=== PATIENT | female | born 1945 | race African-American/Black ===

== ENCOUNTER 2017-07-03 07:09 | Inpatient (IN) | payer MEDICARE, MEDICAID ==
[~2017-07-03] VITALS: Ht 152.4 cm; Wt 59.9 kg
[~2017-07-03 07:09] MED LIST: AMLO5TAB4 PO; ASPI-1159 PO; CHOL100046 PO; FOLI-43 PO; HYDR-4005 PO; LOSA100T14 PO; METF10002 PO; METO50TA5 PO; PANT40TA4 PO; RIVA20TA PO; ROSU10TA PO
[2017-07-03] MEDS ORDERED: SODIUM CHLORIDE 0.9% 1,000 ML IV ONE (07:29)
[2017-07-03] MEDS ORDERED: LORAZEPAM 2MG/ML CPJ IV ONE (07:30)
[2017-07-03 08:07] LABS: CHLORIDE 105 mEq/L (98-107)
[2017-07-03 08:09] LABS: INR 1.2; PROTHROMBIN TIME 12.1 sec (9.4-11.6)
[2017-07-03 08:10] LABS: BASOPHILS % 0.6 % (0.0-2.0); EOSINOPHILS % 1.4 % (0.0-5.0); HEMATOCRIT. 37.6 % (36.0-48.0); HEMOGLOBIN. 12.3 g/dL (12.0-16.0); LYMPHOCYTES % 58.2 % (20.0-50.0); MEAN CORPUSCULAR HEMOGLOBIN 30.1 pg (28.0-32.0); MEAN CORPUSCULAR VOLUME 91.9 fL (81.0-99.0); MEAN PLATELET VOLUME 8.7 fl (7.4-10.4); MONOCYTES % 10.5 % (2.0-8.0); NEUTROPHILS % 29.3 % (40.0-76.0); PLATELET 220 x1000/uL (130-400); RED CELL DISTRIBUTION WIDTH 14.4 % (11.6-14.6)
[2017-07-03 08:11] LABS: AMMONIA 29 uMol/L (<32)
[2017-07-03 08:22] LABS: CARBON DIOXIDE 30 mEq/L (21-32)
[2017-07-03] MEDS ORDERED: LEVETIRACETAM 500MG PREMIX 100 ML IV ONE (10:30)
[2017-07-03 11:34] LABS: CLARITY URINE CLEAR (CLEAR); COLOR URINE YELLOW (YELLOW); GLUCOSE URINE NEGATIVE (NEGATIVE); KETONES URINE NEGATIVE (NEGATIVE); LEUKOCYTE ESTERASE URINE 2+ (NEGATIVE); NITRITE URINE NEGATIVE (NEGATIVE); OCCULT BLOOD URINE TRACE (NEGATIVE); PROTEIN URINE NEGATIVE (NEGATIVE); SPECIFIC GRAVITY URINE 1.007 (1.005-1.030); UROBILINOGEN URINE 0.2 E.U./dL (0.2-1.0)
[2017-07-03] MEDS ORDERED: ASPIRIN 81MG TABLET PO ONE (11:45)
[2017-07-03] MEDS ORDERED: NA PHOS,M-B/NA PHOS,DI-BA ENEMA 118ML PR PRN (12:00)
[2017-07-03] MEDS ORDERED: ACETAMINOPHEN 325MG TABLET PO PRN (12:00)
[2017-07-03] MEDS ORDERED: NITROGLYCERIN 0.4MG TABLET SL SL PRN (12:00)
[2017-07-03] MEDS ORDERED: DIPHENHYDRAMINE 50MG/ML VIAL IV PRN (12:00)
[2017-07-03] MEDS ORDERED: LORAZEPAM 2MG/ML CPJ IV PRN (12:00)
[2017-07-03] MEDS ORDERED: MAGNESIUM/ALUMINUM HYDROXIDE/SIMETHICONE 30ML UDC PO PRN (12:00)
[2017-07-03] MEDS ORDERED: IPRATROPIUM/ALBUTEROL 0.5-3(2.5)MG/3ML NEB INH PRN (12:00)
[2017-07-03] MEDS ORDERED: DOCUSATE SODIUM 100MG CAPSULE PO PRN (12:00)
[2017-07-03] MEDS ORDERED: CLONIDINE 0.1MG TABLET PO PRN (12:00)
[2017-07-03] MEDS ORDERED: GUAIFENESIN 200MG/10ML SUGAR FREE UDC PO PRN (12:00)
[2017-07-03] MEDS ORDERED: ONDANSETRON HCL 4MG/2ML VIAL IV PRN (12:00)
[2017-07-03 14:36] LABS: CREATINE KINASE MB FRACTION 31.7 ng/mL (0.5-3.6)
[2017-07-03 14:39] LABS: TROPONIN I 4.7 ng/mL (0.00-0.04)
[2017-07-03] MEDS ORDERED: ZOLPIDEM TARTRATE 5MG TABLET PO PRN (20:30)
[2017-07-03 23:15] VITALS: BP 141/75
[2017-07-03] MEDS: LEVETIRACETAM 500MG TABLET PO SCH (23:35)
[2017-07-03] MEDS: METOPROLOL TARTRATE 25MG TABLET PO SCH (23:35)
[2017-07-03] MEDS: NITROGLYCERIN OINT 1GM/INCH UDPKT TD SCH (23:35)
[2017-07-03] MEDS: FAMOTIDINE 20MG/2ML VIAL IV SCH (23:35)
[2017-07-03] MEDS: ENOXAPARIN 60MG/0.6ML SYR SUBCUT SCH (23:36)
[2017-07-04] VITALS: BP 132/71
[2017-07-04] MEDS ORDERED: MAGN400T26 PO (01:24)
[2017-07-04 01:33] LABS: *AMPHETAMINES SCREEN URINE NEGATIVE (NEGATIVE); *BARBITURATES SCREEN URINE NEGATIVE (NEGATIVE); *BENZODIAZEPINES SCREEN URINE NEGATIVE (NEGATIVE); *COCAINE SCREEN URINE NEGATIVE (NEGATIVE); CANNABINOID URINE SCREEN PRESUMTIVE POSITIVE (NEGATIVE); METHADONE URINE SCREEN NEGATIVE (NEGATIVE); OPIATES URINE SCREEN NEGATIVE (NEGATIVE); PHENCYCLIDINE URINE SCREEN NEGATIVE (NEGATIVE)
[2017-07-04 04:00] VITALS: BP 112/71
[2017-07-04] MEDS: NITROGLYCERIN OINT 1GM/INCH UDPKT TD SCH ×4 (05:36→23:51)
[2017-07-04 05:50] LABS: BASOPHILS % 0.6 % (0.0-2.0); EOSINOPHILS % 2.1 % (0.0-5.0); HEMOGLOBIN. 11.8 g/dL (12.0-16.0); LYMPHOCYTES % 45.9 % (20.0-50.0); MEAN CORPUSCULAR HEMOGLOBIN 30.1 pg (28.0-32.0); MEAN CORPUSCULAR VOLUME 91.7 fL (81.0-99.0); MEAN PLATELET VOLUME 8.9 fl (7.4-10.4); MONOCYTES % 14.5 % (2.0-8.0); NEUTROPHILS % 36.9 % (40.0-76.0); PLATELET 234 x1000/uL (130-400); RED BLOOD CELL COUNT 3.93 mill/uL (4.2-5.4); RED CELL DISTRIBUTION WIDTH 14.3 % (11.6-14.6)
[2017-07-04 06:50] LABS: CHLORIDE 107 mEq/L (98-107)
[2017-07-04 07:09] LABS: CARBON DIOXIDE 25 mEq/L (21-32); CREATINE KINASE 210 IU/L (26-192); CREATINE KINASE MB FRACTION 21.7 ng/mL (0.5-3.6); HDL CHOLESTEROL 65 mg/dL (40-59); LDL CHOLESTEROL 73 mg/dL (5-100)
[2017-07-04 08:00] VITALS: BP 125/75
[2017-07-04] MEDS: LEVETIRACETAM 500MG TABLET PO SCH ×2 (08:45→21:48)
[2017-07-04] MEDS: ASPIRIN 325MG EC TABLET PO SCH (08:45)
[2017-07-04] MEDS: FAMOTIDINE 20MG/2ML VIAL IV SCH ×2 (08:46→21:48)
[2017-07-04] MEDS: ENOXAPARIN 60MG/0.6ML SYR SUBCUT SCH ×2 (08:46→21:49)
[2017-07-04] MEDS: METOPROLOL TARTRATE 25MG TABLET PO SCH ×2 (08:46→21:48)
[2017-07-04] MEDS ORDERED: DEXTROSE 50% WATER 50ML SYRINGE IV PRN (10:15)
[2017-07-04 12:00] VITALS: BP 118/70
[2017-07-04] MEDS: BLOOD SUGAR DIAGNOSTIC STRIP TEST SCH ×3 (12:40→21:49)
[2017-07-04] MEDS: INSULIN LISPRO 100 UNITS/ML SUBCUT SCH ×3 (13:10→21:00)
[2017-07-04 16:00] VITALS: BP 113/55
[2017-07-04] MEDS ORDERED: MAGNESIUM 2 G PREMIX 50 ML IV NR (16:00)
[2017-07-04] MEDS: LOSARTAN POTASSIUM 25 MG TABLET PO SCH (18:16)
[2017-07-04 20:24] VITALS: BP 135/78
[2017-07-05 00:02] VITALS: BP 123/64
[2017-07-05 04:00] VITALS: BP 123/71
[2017-07-05] MEDS: NITROGLYCERIN OINT 1GM/INCH UDPKT TD SCH ×3 (05:38→18:53)
[2017-07-05] MEDS: BLOOD SUGAR DIAGNOSTIC STRIP TEST SCH ×4 (05:38→21:55)
[2017-07-05 06:53] LABS: HEMATOCRIT. 35.7 % (36.0-48.0); MEAN CORPUSCULAR HEMOGLOBIN 30.5 pg (28.0-32.0); MEAN CORPUSCULAR VOLUME 90.8 fL (81.0-99.0); PLATELET 226 x1000/uL (130-400); RED BLOOD CELL COUNT 3.93 mill/uL (4.2-5.4); RED CELL DISTRIBUTION WIDTH 14.1 % (11.6-14.6)
[2017-07-05 07:25] LABS: CARBON DIOXIDE 25 mEq/L (21-32); CHLORIDE 105 mEq/L (98-107); CREATINE KINASE 148 IU/L (26-192)
[2017-07-05 07:35] VITALS: BP 156/78
[2017-07-05 07:42] LABS: CREATINE KINASE MB FRACTION 6.4 ng/mL (0.5-3.6)
[2017-07-05] MEDS: INSULIN LISPRO 100 UNITS/ML SUBCUT SCH ×4 (08:10→21:00)
[2017-07-05] MEDS: FAMOTIDINE 20MG/2ML VIAL IV SCH ×2 (09:03→22:00)
[2017-07-05] MEDS: LEVETIRACETAM 500MG TABLET PO SCH ×2 (09:04→21:54)
[2017-07-05] MEDS: ASPIRIN 325MG EC TABLET PO SCH (09:04)
[2017-07-05] MEDS: METOPROLOL TARTRATE 25MG TABLET PO SCH ×2 (09:04→21:54)
[2017-07-05] MEDS: LOSARTAN POTASSIUM 25 MG TABLET PO SCH (09:05)
[2017-07-05] MEDS: ENOXAPARIN 60MG/0.6ML SYR SUBCUT SCH ×2 (09:06→21:59)
[2017-07-05 11:27] VITALS: BP 136/70
[2017-07-05 13:26] LABS: PLATELET ESTIMATE NORMAL
[2017-07-05] MEDS ORDERED: GADOBENATE DIMEGLUMINE 529 MG/ML 10ML IV ONE (14:40)
[2017-07-05 15:27] VITALS: BP 110/62
[2017-07-05 20:00] VITALS: BP 125/75
[2017-07-05] MEDS: ATORVASTATIN CALCIUM 10MG TABLET PO SCH (21:54)
[2017-07-06] VITALS (14 sets, daily range): BP systolic 93–173; BP diastolic 48–100
[2017-07-06] MEDS: NITROGLYCERIN OINT 1GM/INCH UDPKT TD SCH ×5 (06:00→23:00)
[2017-07-06 06:05] LABS: HEMATOCRIT. 34.9 % (36.0-48.0); HEMOGLOBIN. 11.6 g/dL (12.0-16.0); MEAN CORPUSCULAR HEMOGLOBIN 30.1 pg (28.0-32.0); MEAN CORPUSCULAR VOLUME 90.9 fL (81.0-99.0); MEAN PLATELET VOLUME 9.2 fl (7.4-10.4); PLATELET 222 x1000/uL (130-400); RED BLOOD CELL COUNT 3.84 mill/uL (4.2-5.4); RED CELL DISTRIBUTION WIDTH 14.4 % (11.6-14.6)
[2017-07-06 06:42] LABS: CARBON DIOXIDE 27 mEq/L (21-32); CHLORIDE 107 mEq/L (98-107)
[2017-07-06] MEDS: INSULIN LISPRO 100 UNITS/ML SUBCUT SCH ×4 (08:10→20:55)
[2017-07-06] MEDS: BLOOD SUGAR DIAGNOSTIC STRIP TEST SCH ×4 (08:14→20:55)
[2017-07-06] MEDS: LOSARTAN POTASSIUM 25 MG TABLET PO SCH (08:39)
[2017-07-06] MEDS: ASPIRIN 325MG EC TABLET PO SCH (08:39)
[2017-07-06] MEDS: LEVETIRACETAM 500MG TABLET PO SCH ×2 (08:39→21:13)
[2017-07-06] MEDS: METOPROLOL TARTRATE 25MG TABLET PO SCH ×2 (08:41→21:13)
[2017-07-06] MEDS: FAMOTIDINE 20MG/2ML VIAL IV SCH ×2 (08:41→21:13)
[2017-07-06 09:26] LABS: PLATELET ESTIMATE NORMAL
[2017-07-06] MEDS ORDERED: IOHEXOL-300 100 ML BOTTLE ONE (13:03)
[2017-07-06] MEDS ORDERED: LIDOCAINE HCL 1% 20ML VIAL (Pyxis) INJ ONE (13:03)
[2017-07-06] MEDS ORDERED: FENTANYL CITRATE/PF 50MCG/ML 2ML VIAL ONE (13:08)
[2017-07-06] MEDS ORDERED: MIDAZOLAM HCL 2 MG/2 ML VIAL ONE ×2 (13:08→13:21)
[2017-07-06] MEDS ORDERED: ATROPINE SULFATE 0.1MG/ML 10ML DISP.SYRIN ONE (13:15)
[2017-07-06] MEDS ORDERED: IOVERSOL 240MG/ML 100ML BOTTLE IV ONE (13:44)
[2017-07-06] MEDS ORDERED: NITROGLYCERIN 50MCG/ML 10ML VIAL (CATH LAB) IV ONE (14:01)
[2017-07-06] MEDS ORDERED: NICARDIPINE 100MCG/ML 10ML VIAL (CATH LAB) IV ONE (14:01)
[2017-07-06] MEDS ORDERED: HEPARIN SODIUM 1,000 UNIT/1ML VIAL IV ONE (14:01)
[2017-07-06] MEDS ORDERED: CLOPIDOGREL 75MG TABLET ONE (14:08)
[2017-07-06] MEDS ORDERED: ATROPINE SULFATE 1MG/10ML SYR IV PRN (14:15)
[2017-07-06] MEDS ORDERED: ACETAMINOPHEN 325MG TABLET PO PRN (14:15)
[2017-07-06] MEDS: TRAMADOL 50MG TABLET PO PRN ×2 (16:14→21:45)
[2017-07-06] MEDS: MORPHINE SULFATE 4 MG/ML CPJ (NOT FOR IM USE) IV PRN (19:53)
[2017-07-06] MEDS: ATORVASTATIN CALCIUM 10MG TABLET PO SCH (21:13)
[2017-07-07] VITALS (17 sets, daily range): BP systolic 88–139; BP diastolic 44–86
[2017-07-07] MEDS: MORPHINE SULFATE 4 MG/ML CPJ (NOT FOR IM USE) IV PRN (02:12)
[2017-07-07] MEDS: BLOOD SUGAR DIAGNOSTIC STRIP TEST SCH ×4 (06:12→21:01)
[2017-07-07] MEDS: NITROGLYCERIN OINT 1GM/INCH UDPKT TD SCH ×3 (06:27→17:57)
[2017-07-07] MEDS: INSULIN LISPRO 100 UNITS/ML SUBCUT SCH ×4 (07:20→21:21)
[2017-07-07] MEDS: LOSARTAN POTASSIUM 25 MG TABLET PO SCH (08:43)
[2017-07-07] MEDS: METOPROLOL TARTRATE 25MG TABLET PO SCH ×2 (08:43→21:00)
[2017-07-07] MEDS: FAMOTIDINE 20MG/2ML VIAL IV SCH ×2 (08:54→21:23)
[2017-07-07] MEDS: LEVETIRACETAM 500MG TABLET PO SCH ×2 (08:55→21:23)
[2017-07-07] MEDS: ASPIRIN 325MG EC TABLET PO SCH (08:55)
[2017-07-07] MEDS: CLOPIDOGREL 75MG TABLET PO SCH (08:55)
[2017-07-07 09:52] LABS: BASOPHILS % 0.6 % (0.0-2.0); EOSINOPHILS % 2.6 % (0.0-5.0); HEMATOCRIT. 37.3 % (36.0-48.0); HEMOGLOBIN. 12.4 g/dL (12.0-16.0); LYMPHOCYTES % 46.1 % (20.0-50.0); MEAN CORPUSCULAR HEMOGLOBIN 30.1 pg (28.0-32.0); MEAN CORPUSCULAR VOLUME 90.8 fL (81.0-99.0); MEAN PLATELET VOLUME 8.1 fl (7.4-10.4); MONOCYTES % 13.4 % (2.0-8.0); NEUTROPHILS % 37.3 % (40.0-76.0); PLATELET 244 x1000/uL (130-400); RED BLOOD CELL COUNT 4.12 mill/uL (4.2-5.4); RED CELL DISTRIBUTION WIDTH 14.3 % (11.6-14.6)
[2017-07-07 10:08] LABS: CARBON DIOXIDE 28 mEq/L (21-32); CHLORIDE 100 mEq/L (98-107)
[2017-07-07] MEDS: ATORVASTATIN CALCIUM 10MG TABLET PO SCH (21:23)
[2017-07-08] VITALS (9 sets, daily range): BP systolic 91–124; BP diastolic 49–66
[2017-07-08] MEDS: NITROGLYCERIN OINT 1GM/INCH UDPKT TD SCH ×3 (06:00→12:00)
[2017-07-08] MEDS: BLOOD SUGAR DIAGNOSTIC STRIP TEST SCH ×2 (06:27→12:12)
[2017-07-08] MEDS: INSULIN LISPRO 100 UNITS/ML SUBCUT SCH ×2 (07:20→12:12)
[2017-07-08] MEDS: LOSARTAN POTASSIUM 25 MG TABLET PO SCH (08:15)
[2017-07-08] MEDS: FAMOTIDINE 20MG/2ML VIAL IV SCH (08:15)
[2017-07-08] MEDS: LEVETIRACETAM 500MG TABLET PO SCH (08:16)
[2017-07-08] MEDS: CLOPIDOGREL 75MG TABLET PO SCH (08:16)
[2017-07-08] MEDS: ASPIRIN 325MG EC TABLET PO SCH (08:16)
[2017-07-08] MEDS: METOPROLOL TARTRATE 25MG TABLET PO SCH (08:17)
== END 2017-07-08 14:49 | disposition home or self-care (01) | DRG 246 ==
LOC: ER 07:34 → 7WST 10:24 → EDBEDREQ 10:29 → EDBEDREQTM 10:29 → SUPCPDRO 11:59 → ENRESERV 19:51 → EDBEDREQ 22:24 → 3WST 07-06 14:38
PROVIDERS: ADMIT Internal Medicine; ATTEND Internal Medicine
PROC: 4A023N7 Measurement of Cardiac Sampling and Pressure, Left Heart, Percutaneous Approach (ICD-10-PCS; principal; 2017-07-06)
PROC: 027034Z Dilation of Coronary Artery, One Artery with Drug-eluting Intraluminal Device, Percutaneous Approach (ICD-10-PCS; 2017-07-06)
PROC: B2111ZZ Fluoroscopy of Multiple Coronary Arteries using Low Osmolar Contrast (ICD-10-PCS; 2017-07-06)
PROC: B2151ZZ Fluoroscopy of Left Heart using Low Osmolar Contrast (ICD-10-PCS; 2017-07-06)
DX: I21.4 Non-ST elevation (NSTEMI) myocardial infarction (principal); I50.21 Acute systolic (congestive) heart failure; E11.51 Type 2 diabetes mellitus with diabetic peripheral angiopathy without gangrene; E44.1 Mild protein-calorie malnutrition; G40.409 Other generalized epilepsy and epileptic syndromes, not intractable, without status epilepticus; I48.0 Paroxysmal atrial fibrillation; Z89.611 Acquired absence of right leg above knee; F12.90 Cannabis use, unspecified, uncomplicated; I25.10 Atherosclerotic heart disease of native coronary artery without angina pectoris; R74.0 Nonspecific elevation of levels of transaminase and lactic acid dehydrogenase [LDH]; K21.9 Gastro-esophageal reflux disease without esophagitis; I11.0 Hypertensive heart disease with heart failure; I50.9 Heart failure, unspecified; E78.00 Pure hypercholesterolemia, unspecified; Z85.118 Personal history of other malignant neoplasm of bronchus and lung; Z79.01 Long term (current) use of anticoagulants; Z79.4 Long term (current) use of insulin; Z83.3 Family history of diabetes mellitus; Z79.82 Long term (current) use of aspirin; Z87.891 Personal history of nicotine dependence; Z90.710 Acquired absence of both cervix and uterus; Z92.21 Personal history of antineoplastic chemotherapy; Z92.3 Personal history of irradiation; Z95.5 Presence of coronary angioplasty implant and graft; Z88.0 Allergy status to penicillin; Z88.6 Allergy status to analgesic agent; Z79.899 Other long term (current) drug therapy; Z68.25 Body mass index [BMI] 25.0-25.9, adult
CPT/HCPCS: 36415; 70450; 70551; 70553; 71010; 80053; 80061; 80305; 81001; 82140; 82550; 82553; 82962; 83036; 83690; 83735; 83880; 84443; 84484; 85025; 85347; 85379; 85610; 92928; 93005; 93306; 93458; 93970; 96361; 96374; 96375; 97162; 97167; 99285; A9577; C1725; C1769; C1887; C1893; J0461; J1644; J1650; J1815; J1953; J2060; J2250; J2270; J2405; J3010; J3475; J3490; J7030; J7050; Q9967